=== PATIENT | female | born 1975 | race Two or more races ===

== ENCOUNTER 2023-01-21 12:18 | Emergency (ER) | payer OTHER ==
[~2023-01-21] VITALS: Ht 172.7 cm; Wt 54.4 kg
[~2023-01-21 12:18] MED LIST: NORFLEX100 MG PO; TORADOL10 MG PO
== END 2023-01-21 15:27 | disposition home or self-care (01) ==
LOC: ER 12:18
DX: R10.2 Pelvic and perineal pain (principal); K59.00 Constipation, unspecified

== ENCOUNTER 2023-02-14 00:05 | Emergency (ER) | payer OTHER ==
[~2023-02-14] VITALS: Ht 172.7 cm; Wt 56.7 kg
== END 2023-02-14 05:43 | disposition home or self-care (01) ==
LOC: ER 00:05
DX: N83.8 Other noninflammatory disorders of ovary, fallopian tube and broad ligament (principal); R10.9 Unspecified abdominal pain
CPT/HCPCS: 36415; 74177; Q9965